=== PATIENT | male | born 1935 | race Caucasian/White ===

== ENCOUNTER 2018-07-27 15:09 | Inpatient (IN) | payer MEDICARE, MEDICAID ==
[~2018-07-27] VITALS: Ht 165.1 cm; Wt 70.3 kg
[~2018-07-27 15:09] MED LIST: SEE MED SHEET
[2018-07-27 17:10] LABS: HEMATOCRIT. 42.4 % (42.0-52.0); HEMOGLOBIN. 14.6 g/dL (14.0-18.0); MEAN CORPUSCULAR HEMOGLOBIN 32.3 pg (28.0-32.0); MEAN CORPUSCULAR VOLUME 93.7 fL (80.0-94.0); PLATELET 177 x1000/uL (130-400); RED BLOOD CELL COUNT 4.53 mill/uL (4.7-6.1); RED CELL DISTRIBUTION WIDTH 14.9 % (11.6-14.6)
[2018-07-27 17:11] LABS: CHLORIDE 103 mEq/L (98-107); PROTHROMBIN TIME 10.4 sec (9.1-11.1)
[2018-07-27] MEDS ORDERED: SODIUM CHLORIDE 0.9% 1,000 ML IV ONE (17:35)
[2018-07-27 18:01] LABS: PLATELET ESTIMATE NORMAL
[2018-07-27 18:41] LABS: CLARITY URINE CLEAR (CLEAR); COLOR URINE YELLOW (YELLOW); KETONES URINE NEGATIVE (NEGATIVE); LEUKOCYTE ESTERASE URINE NEGATIVE (NEGATIVE); NITRITE URINE NEGATIVE (NEGATIVE); OCCULT BLOOD URINE NEGATIVE (NEGATIVE); PH URINE 7.5 (4.5-8.0); PROTEIN URINE NEGATIVE (NEGATIVE); SPECIFIC GRAVITY URINE 1.017 (1.005-1.030)
[2018-07-27] MEDS ORDERED: SODIUM CHLORIDE 0.9% 1000ML BAG (SEPSIS BOLUS) IV ONE (18:45)
[2018-07-27] MEDS ORDERED: MEROPENEM 1,000 MG in SODIUM CHLORIDE 0.9% 100 ML IV ONE (20:45)
[2018-07-27] MEDS ORDERED: VANCOMYCIN 1 G PREMIX 200 ML IV ONE (20:45)
[2018-07-28] MEDS ORDERED: SODIUM CHLORIDE 0.45% 1,000 ML IV SCH (07:46)
[2018-07-28] MEDS ORDERED: GUAIFENESIN 200MG/10ML SUGAR FREE UDC PO PRN (08:00)
[2018-07-28] MEDS ORDERED: ACETAMINOPHEN 325MG TABLET PO PRN (08:00)
[2018-07-28] MEDS ORDERED: DOCUSATE SODIUM 100MG CAPSULE PO PRN (08:00)
[2018-07-28] MEDS ORDERED: ONDANSETRON HCL 4MG/2ML INJ IV PRN (08:00)
[2018-07-28] MEDS ORDERED: CLONIDINE 0.1MG TABLET PO PRN (08:00)
[2018-07-28] MEDS ORDERED: MAGNESIUM/ALUMINUM HYDROXIDE/SIMETHICONE 30ML UDC PO PRN (08:00)
[2018-07-28 11:39] VITALS: BP 152/68
[2018-07-28 11:48] VITALS: BP 152/60
[2018-07-28] MEDS ORDERED: ASPI-1159 MT (11:52)
[2018-07-28] MEDS: ENOXAPARIN 40MG/0.4ML SYR SUBCUT SCH (13:41)
[2018-07-28] MEDS: SODIUM CHLORIDE 0.45% 1,000 ML IV SCH (13:41)
[2018-07-28] MEDS ORDERED: PNEUMOCOCCAL 23-VAL P-SAC VAC 0.5 ML IM ONE (15:15)
[2018-07-28] MEDS ORDERED: INFLUENZA VIRUS VACCINE(AFLURIA) 0.5ML SYR IM ONE (15:15)
[2018-07-28 16:00] VITALS: BP 120/69
[2018-07-28] MEDS ORDERED: LEVOFLOXACIN 500MG PREMIX 100 ML IV SCH (16:00)
[2018-07-28] MEDS: VANCOMYCIN 1250MG in DEXTROSE 5% WATER 250ML IV SCH (16:38)
[2018-07-28 20:00] VITALS: BP 111/61
[2018-07-29] VITALS: BP 150/63
[2018-07-29 04:00] VITALS: BP 124/58
[2018-07-29 07:43] LABS: BASOPHILS % 0.5 % (0.0-2.0); HEMATOCRIT. 39.9 % (42.0-52.0); HEMOGLOBIN. 13.7 g/dL (14.0-18.0); LYMPHOCYTES % 12.6 % (20.0-50.0); MEAN CORPUSCULAR HEMOGLOBIN 32.5 pg (28.0-32.0); MEAN CORPUSCULAR VOLUME 94.5 fL (80.0-94.0); MEAN PLATELET VOLUME 9.6 fl (7.4-10.4); MONOCYTES % 8.4 % (2.0-8.0); NEUTROPHILS % 77.5 % (40.0-76.0); PLATELET 132 x1000/uL (130-400); RED BLOOD CELL COUNT 4.22 mill/uL (4.7-6.1); RED CELL DISTRIBUTION WIDTH 14.7 % (11.6-14.6)
[2018-07-29 08:00] VITALS: BP 119/63
[2018-07-29] MEDS: VANCOMYCIN 1250MG in DEXTROSE 5% WATER 250ML IV SCH (09:07)
[2018-07-29 10:49] LABS: CHLORIDE 104 mEq/L (98-107)
[2018-07-29 11:59] VITALS: BP 144/61
[2018-07-29] MEDS: ENOXAPARIN 40MG/0.4ML SYR SUBCUT SCH (13:38)
[2018-07-29 15:44] VITALS: BP 139/70
[2018-07-29] MEDS ORDERED: DEXTROSE 50% WATER 50ML SYRINGE IV PRN (17:30)
[2018-07-29] MEDS ORDERED: POTASSIUM CHLORIDE 20MEQ TABLET SR PO NR (17:30)
[2018-07-29] MEDS ORDERED: LEVOFLOXACIN 500MG PREMIX 100 ML IV SCH (18:00)
[2018-07-29] MEDS: INSULIN LISPRO 100 UNITS/ML SUBCUT SCH ×2 (18:02→21:00)
[2018-07-29] MEDS: BLOOD SUGAR DIAGNOSTIC STRIP TEST SCH ×2 (18:08→21:32)
[2018-07-29 20:00] VITALS: BP 154/72
[2018-07-29] MEDS: SODIUM CHLORIDE 0.45% 1,000 ML IV SCH (23:05)
[2018-07-30] VITALS: BP 152/71
[2018-07-30 04:00] VITALS: BP 141/71
[2018-07-30 07:26] LABS: BASOPHILS % 0.7 % (0.0-2.0); EOSINOPHILS % 2.3 % (0.0-5.0); HEMOGLOBIN. 14.6 g/dL (14.0-18.0); LYMPHOCYTES % 23.9 % (20.0-50.0); MEAN CORPUSCULAR HEMOGLOBIN 32.5 pg (28.0-32.0); MEAN CORPUSCULAR VOLUME 93.4 fL (80.0-94.0); MEAN PLATELET VOLUME 9.3 fl (7.4-10.4); MONOCYTES % 11.1 % (2.0-8.0); PLATELET 164 x1000/uL (130-400); RED BLOOD CELL COUNT 4.49 mill/uL (4.7-6.1); RED CELL DISTRIBUTION WIDTH 15.1 % (11.6-14.6)
[2018-07-30] MEDS: SODIUM CHLORIDE 0.45% 1,000 ML IV SCH (07:37)
[2018-07-30] MEDS: BLOOD SUGAR DIAGNOSTIC STRIP TEST SCH (07:38)
[2018-07-30] MEDS: INSULIN LISPRO 100 UNITS/ML SUBCUT SCH (07:38)
[2018-07-30] MEDS: VANCOMYCIN 1250MG in DEXTROSE 5% WATER 250ML IV SCH (07:38)
[2018-07-30 07:57] LABS: CHLORIDE 104 mEq/L (98-107)
[2018-07-30 08:00] VITALS: BP 105/66
[2018-07-30 10:05] VITALS: BP 105/66
== END 2018-07-30 11:45 | disposition home or self-care (01) | DRG 872 ==
LOC: ER 17:45 → 8WST 20:59 → ENRESERV 07-28 09:54
PROVIDERS: ADMIT Hospitalist; ATTEND Hospitalist
DX: A41.52 Sepsis due to Pseudomonas (principal); E11.9 Type 2 diabetes mellitus without complications; E78.5 Hyperlipidemia, unspecified; I10 Essential (primary) hypertension; E78.00 Pure hypercholesterolemia, unspecified; Z79.899 Other long term (current) drug therapy
CPT/HCPCS: 36415; 71045; 74176; 82962; 83605; 83735; 84145; 84484; 87077; 87186; 87804; 90686; 90732; 93005; 93970; 99285; J1650; J1815; J1956; J2185; J3370; J7030; J7050; J7060